=== PATIENT | male | born 1980 | race African-American/Black ===

== ENCOUNTER 2017-07-26 18:32 | Emergency (ER) | payer OTHER ==
[~2017-07-26] VITALS: Ht 175.3 cm; Wt 64.9 kg
[2017-07-26 18:58] VITALS: BP 105/62; Ht 175.3 cm; Wt 64.9 kg
== END 2017-07-26 20:40 | disposition home or self-care (01) ==
LOC: ED 18:32
DX: S56.312A Strain of extensor or abductor muscles, fascia and tendons of left thumb at forearm level, initial encounter (principal); W50.0XXA Accidental hit or strike by another person, initial encounter; Y93.61 Activity, american tackle football; Y92.89 Other specified places as the place of occurrence of the external cause; Y99.8 Other external cause status
CPT/HCPCS: A4570

== ENCOUNTER 2018-07-23 06:30 | Emergency (ER) | payer OTHER ==
[~2018-07-23] VITALS: Ht 175.3 cm; Wt 67.6 kg
[2018-07-23 06:37] VITALS: Ht 175.3 cm; Wt 67.6 kg
[2018-07-23 07:58] VITALS: BP 131/79
== END 2018-07-23 07:58 | disposition home or self-care (01) ==
LOC: ED 06:30
DX: K12.2 Cellulitis and abscess of mouth (principal)
CPT/HCPCS: J7512